=== PATIENT | male | born 1970 | race Caucasian/White ===

== ENCOUNTER 2017-05-11 20:14 | Emergency (ER) | payer SELFPAY ==
[~2017-05-11] VITALS: Ht 157.5 cm; Wt 75.0 kg
[2017-05-11] MEDS ORDERED: NITROGLYCERIN OINT 1GM/INCH UDPKT TD ONE (22:15)
[2017-05-11] MEDS ORDERED: MAGNESIUM/ALUMINUM HYDROXIDE/SIMETHICONE 30ML UDC PO ONE (22:15)
[2017-05-11] MEDS ORDERED: ASPIRIN 81MG TABLET PO ONE (22:15)
[2017-05-11 23:07] VITALS: BP 128/77
== END 2017-05-11 22:07 | disposition left against medical advice (07) ==
LOC: ER 20:25
DX: R07.9 Chest pain, unspecified (principal); I25.2 Old myocardial infarction; I10 Essential (primary) hypertension
CPT/HCPCS: 71045; 93005; 99285; Z7610